=== PATIENT | female | born 1940 | race Caucasian/White ===

== ENCOUNTER 2017-05-15 15:37 | Inpatient (IN) | payer OTHER ==
[~2017-05-15] VITALS: Ht 160 cm; Wt 46.5 kg
[2017-05-15] VITALS (26 sets, daily range): BP systolic 71–146; BP diastolic 32–114
--- NOTE | ~2017-05-15 | CNG ---
[facility] [place] [address] CYTO-NONGYN REPORT PROCEDURE Name: GEMA BARAJAS Room #: 236-P ADM IN M.R.#: [id number] Admission: 05/15/17 Date of : 38 Discharge: Report #: [id number] Path Case #: [id number] CYTOPATHOLOGY REPORT COLLECTION DATE: 05/15/2017 RECEIVED DATE: 05/16/2017 SUBMITTING PHYS: Dr. Darrian Haque OTHER PHYS: Dr. Gilson Leary CLINICAL HISTORY: HCAP, hypoxia, hypernatremia, ABBEY / PNA, predominantly purulent secretions SPECIMEN(S) RECEIVED: A.Bronchoalveolar lavage, Left lung * * * * * * * * * * * * FINAL DIAGNOSIS: A. Lung, Left Lung, Bronchoalveolar lavage: - No malignant cells identified. Rare pulmonary macrophages are present. Partially obscuring inflammatory cells and debris. PATHOLOGIST: Nina Rivas M.D. REPORT ELECTRONICALLY SIGNED BY: Nina Rivas M.D. DATE/TIME: 05/17/2017 14:24 * * * * * * * * * * * * GROSS PATHOLOGY: A. Bronchoalveolar lavage, Left lung: The specimen is submitted unfixed, labeled "JonnathanGema". Received by the Cytology Department is three mL of cloudy colorless fluid. One ThinPrep slide was prepared. (lg 05.16.2017) DENTAL FINANCIAL COORDINATOR(S): DARIUSZ Lr(ASCP) INITIAL CPT CODE(S): A; 13767 Professional services performed by [facility] at [facility] [address], [place] [address] Technical services performed by [facility] at [address] [place] [address], [address], [place] [address]. [facility] [address] [place] [address] CYTO-NONGYN REPORT PROCEDURE Name: GEMA BARAJAS Room #: 236-P ADM IN M.R.#: [id number] Admission: 05/15/17 Date of : 38 Discharge: Report #: [id number] Path Case #: [id number] [address] [facility], [address] [place] [address] PHONE: [phone] DIRECTOR: Roberto Griffith M.D. * * * END OF REPORT * * *
--- NOTE | ~2017-05-15 | EKG ---
[address] [place] [address] ELECTROCARDIOGRAM REPORT Name: JENNNAT Room #: 236-P ADM IN M.R.#: [id number] Admission: 05/15/17 Attend Phys: Gilson De La Cruz DO Discharge: Date of : 38 Report #: [id number] THIS REPORT FOR: //name// [facility] ED Test Date: 2017-05-15 Test Time: 18:19:00 Pat Name: NAT BARAJAS Department: Room: 236 Gender: F Insurance Underwriter Sales: mckayla cash : 1940 Requested By: Graham Bowen Order Number: [id number] MD: Wale Dooley Measurements Intervals [place] Rate: 74 P: 65 [place]: 128 QRS: 32 QRSD: 84 T: 136 QT: 394 QTc: 438 Interpretive Statements Sinus rhythm Nonspecific ST segment abnormality No previous ECG available for comparison Electronically Signed On 05-16-2017 8:39:45 PRE PRESS MANAGER by Wale Dooley [email or web address] <ELECTRONICALLY SIGNED> By: Wale Dooley MD, [facility] 05/16/17 0839 1819 181 Wale Dooley MD, FACC /EPI
--- NOTE | ~2017-05-15 | HC ---
[facility] [place] [address] CONSULTATION Name: NAT BARAJAS Room #: 236-P [facility] IN M.R.#: [id number] Admission: 05/15/17 Attend Phys: Gilson De La Cruz DO Discharge: Date of : 39 Report #: [id number] THIS REPORT FOR: //name// CC: Gilson Hernandez MD DATE OF SERVICE: 05/16/2017 ATTENDING PHYSICIAN: Dr. De La Cruz. REASON FOR CONSULTATION: Pneumonia. Antibiotic management. HISTORY OF PRESENT ILLNESS: The patient is a 77-year-old white woman, admitted through the Emergency Room with respiratory failure requiring orotracheal intubation and mechanical ventilation. A CT scan of the chest revealed left lower lobe atelectasis, infiltrate and recent bronchial tubes requiring bronchoscopy by Dr. Haque. She is started on broad-spectrum antibiotic coverage consisting of meropenem, vancomycin and levofloxacin. Cultures are pending at the time of this dictation. All information on this patient is gathered from the review of her records. She is now in the Intensive Care Unit, intubated through oral cavity, sedated on Levophed. Nursing reports she might be better. PAST MEDICAL HISTORY: Possible dementia. Chronic obstructive pulmonary disease. Restless leg syndrome. Depression. Previous abdominal surgery, undetermined type. DRUG ALLERGIES: PENICILLIN. MEDICATIONS: Current medications include Levaquin 500 mg IV daily, meropenem 1 g IV every 8 hours, vancomycin 500 mg IV every 12 hours, acetylcysteine inhalation treatments t.i.d., famotidine 20 mg IV daily, magnesium and potassium supplementation per protocol, methylprednisolone 40 mg IV b.i.d., sedation with propofol, inhalation treatment with Atrovent/albuterol, insulin drip, p.r.n. glucose glucagon and pressors per protocol, currently on Levophed. SOCIAL HISTORY: Resides at [facility] for unknown period of time. FAMILY HISTORY: Unable to obtain. REVIEW OF SYSTEMS: Unable to obtain. PHYSICAL EXAMINATION: GENERAL: Well-developed sedated woman, unable to participate in the history and [facility] [address] [place] [address] CONSULTATION Name: NAT BARAJAS Room #: 236-P [facility] IN ..#: [id number] Admission: 05/15/17 Attend Phys: Gilson De La Cruz DO Discharge: Date of : 39 Report #: [id number] physical exam. VITAL SIGNS: Temperature 98.2, pulse 52, respirations 19, BP 96/67, O2 saturation 100% on FiO2 of 60%. HEENMT: Head normocephalic, atraumatic. Pupils pinpoint. Mouth unable to examine because of orotracheal intubation. NECK: Supple, no thyromegaly. LUNGS: Crackles left lung base posteriorly. HEART: S1, S2. No gallop or murmur. ABDOMEN: Soft, no masses or megaly. Old surgical scar midline lower abdomen. PELVIC AND RECTAL: Deferred. Liu catheter in place. EXTREMITIES: No clubbing, cyanosis, warm extremities. NEUROLOGIC: Unable to evaluate. LABORATORY DATA: Sodium 155, potassium 3.3, chloride 125, CO2 of 19, BUN 44, creatinine 0.8, glucose 174, magnesium 3, albumin 2 g/dL. Protime 11.6 seconds, INR 1.2. Fibrinogen 656. MRSA screen negative. WBC 10,600, hemoglobin 10.1 g/dL, platelets 456,000. The white blood cell count differential revealed 18% bands yesterday. The procalcitonin 0.69. Urinalysis revealed trace protein. ABGs, pH 7.40, pCO2 of 33, pO2 of 95, bicarbonate 20, lactate 1.9. This set of gases was on FiO2 of 60%, 5 of PEEP. MICROBIOLOGY DATA: Rapid influenza test negative. Blood and sputum cultures pending. The Gram stain of the sputum revealed many wbc's and mixed miriam. RADIOLOGY EVALUATION: CT scan of the chest revealed left lower lobe infiltrate and intrabronchial debris. ASSESSMENT: 1. Healthcare-associated pneumonia. 2. Possible chronic obstructive pulmonary disease. 3. Respiratory failure, mechanical ventilator dependent. 4. Hypoalbuminemia. SUGGESTIONS: While awaiting culture result, must continue coverage with triple antibiotics consisting of levofloxacin, meropenem and vancomycin. If cultures reveal no significant organisms, may start by dropping vancomycin. We will obtain urine for legionella and Streptococcus pneumoniae antigen. Dr. De La Cruz and Dr. Haque, thank you for requesting my suggestions. <ELECTRONICALLY SIGNED> By: Miguel Aldrich MD 05/17/17 0958 0958 1327 Miguel Aldrich MD /nt
--- NOTE | ~2017-05-15 | P ---
[facility] [place] [address] PROCEDURE REPORT Name: JENNNAT Room #: 236-P [facility] IN M.R.#: [id number] Admission: 05/15/17 Attend Phys: Gilson De La Cruz DO Discharge: 05/24/17 Date of : 39 Report #: [id number] THIS REPORT FOR: //name// CC: Gilson Leary DATE OF SERVICE: 05/15/2017 PROCEDURE: Bronchoscopy through an endotracheal tube while the patient on mechanical ventilatory support. INDICATION: Mucus plugging and atelectasis of the left lung, predominantly left lower lobe and refractory hypoxemia and respiratory failure. ASA classification class 3. PROCEDURE NOTATION: After obtaining informed consent from family, who desired to proceed, bronchoscopy equipment was brought to the bedside, 2.2 mm in diameter channel. A disposable scope was utilized during the procedure. The patient was already sedated on mechanical ventilatory support and a 7.[address]. The patient was on propofol GTT for sedation. 2% lidocaine was instilled down the endotracheal tube, a total of 10 mL to provide topical anesthesia to the airways. Bronchoscope was then passed until distal trachea was seen. Endotracheal tube was deep, but in position in the trachea. Airways were surveyed. Mainstem, lobar, segmental and subsegmental bronchi were explored and appeared patent with the exception of the left lower lobe purulent secretions emanating predominantly from there. They were white in nature. This was purged and aspirated using several 20 mL saline aliquots. This was collected and sent for appropriate cultures and cytology. The airways were patent at the end of procedure. Endotracheal tube was repositioned in good position about 4 cm above the chanell. This was secured in place. The patient tolerated well. No noted complications. No hypoxemia during procedure. Followup chest x-ray pending in a.m. as well as arterial blood gas. <ELECTRONICALLY SIGNED> By: Drarian Haque MD 05/31/17 1452 2151 0823 Darrian Haque MD /nt
--- NOTE | ~2017-05-15 | EKG ---
[address] [address] ELECTROCARDIOGRAM REPORT Name: NAT BARAJAS Room #: 236-P ADM IN M.R.#: [id number] Admission: 05/15/17 Attend Phys: Gilson De La Cruz DO Discharge: Date of : 39 Report #: [id number] THIS REPORT FOR: //name// [facility] Test Date: 2017-05-16 Test Time: 11:07:01 Pat Name: NAT BARAJAS Department: Room: 236 P Gender: F Vp Transportation: Sarah NATHAN : 1940 Requested By: Rebekah Casanova Order Number: [id number] MD: Oswaldo Aldrich Measurements Intervals [place] Rate: 53 P: 68 [place]: 127 QRS: 53 QRSD: 99 T: 74 QT: 480 QTc: 451 Interpretive Statements Sinus rhythm Borderline low voltage, extremity leads Abnormal R-wave progression, early transition Compared to ECG 05/15/2017 18:19:00 ST (T wave) deviation no longer present Electronically Signed On 05-16-2017 16:28:10 [email or web address] ELASTIC ATTACHER by Oswaldo Aldrich [email or web address] <ELECTRONICALLY SIGNED> By: Oswaldo Aldrich MD 05/16/17 1628 1107 1107 Oswaldo Aldrich MD /EPI
--- NOTE | ~2017-05-15 | HC ---
[facility] [place] [address] CONSULTATION Name: NAT BARAJAS Toney Room #: 236-P [facility] IN M.R.#: [id number] Admission: 05/15/17 Attend Phys: Gilson De La Cruz DO Discharge: 05/24/17 Date of : 39 Report #: [id number] THIS REPORT FOR: //name// CC: Miguel Haney DO DATE OF SERVICE: 05/15/2017 PULMONARY CRITICAL CARE CONSULTATION REFERRING PROVIDER: Gilson De La Cruz DO. REASON FOR CONSULTATION: Respiratory failure, mucus plugging. CHIEF COMPLAINT: Respiratory distress. HISTORY OF PRESENT ILLNESS: Our group was asked to come and evaluate the patient, a 77-year-old woman with past pulmonary history noted only for vocal cord paralysis on the left by report. The patient is intubated, unable to give any further history. He has been residing at longterm facility, presumably due to dementia. Upon presentation to the Emergency Department, was in respiratory distress and had refractory hypoxemia requiring intubation. A CT scan of the chest revealed significant left lung atelectasis, predominant in the left lower lobe as well as debris in the airways causing occlusion. The patient also was significantly hypotensive requiring over 2 liters of fluid resuscitation and significant hypernatremia, seems to be sensitive to fluids in this regard. The patient is awake upon my arrival, but unable to speak. Because of significant findings and refractory hypoxemia, a bronchoscopy at the bedside was performed and significant purulent secretions were purged and aspirated from the left lower lobe and sent for testing. Airways were patent post-procedure. ALLERGIES: PENICILLIN. PAST MEDICAL HISTORY: 1. Presumed dementia. 2. Depression. 3. Left vocal cord paralysis of unclear etiology. 4. Hypertension. 5. Gastroesophageal reflux disease. SOCIAL HISTORY: Never a smoker, no alcohol consumption. Resides in a longterm. [facility] [address] [place] [address] CONSULTATION Name: JENNNAT Room #: 236-P [facility]#: [id number] Admission: 05/15/17 Attend Phys: Gilson De La Cruz DO Discharge: 05/24/17 Date of : 39 Report #: [id number] OUTPATIENT MEDICATIONS: Include sennosides, Tylenol, Prozac, Ativan, metformin, Depakote, Seroquel, and ReQuip. FAMILY HISTORY: Unobtainable. REVIEW OF SYSTEMS: Unobtainable at this time due to her current status. PHYSICAL EXAMINATION: VITAL SIGNS: Afebrile, pulse 70s, respiratory rate 18, blood pressure 94/39. GENERAL: This is an elderly woman, arousable, no distress. ENT: A 7.[address]. NECK: Supple, no lymphadenopathy. LUNGS: Markedly diminished on the left, but relatively clear otherwise. CARDIOVASCULAR: Heart regular. No murmurs noted. ABDOMEN: Soft, no tenderness. EXTREMITIES: Warm with 2+ pulses. No edema. Three peripheral IV is noted. LABORATORY DATA: White blood cell count 15,000, hemoglobin 12, hematocrit 37, platelet count 591. Sodium 156, potassium 3.1, chloride 123, bicarbonate 22, BUN 59, creatinine 0.9, and glucose 168. TSH 0.327. Arterial blood gas once intubated on assist control, tidal volume 500, rate of 16, PEEP of 5, FiO2 of 80% revealed pH 7.43, pCO2 of 32, pO2 of 85, bicarbonate of 20. CT scan as described in HPI. IMPRESSION: 1. Left lower lobe pneumonia with significant atelectasis from mucus plugging, status post bronchoscopy to clear airway secretions. Suggest sending specimens for appropriate cultures and cytology. I asked Infectious Disease to assist with management of healthcare-associated pneumonia and possible aspiration. 2. Acute hypoxemic respiratory failure due to the above, improved on mechanical ventilatory support. Continue with airway clearance measures and systemic steroids. 3. Probable dementia. 4. History of depression. As above, we will attempt to wean mechanical ventilatory support as patient improves appropriately and if neurologic responds. Would consider initiating sepsis protocol if patient continues to require large amount of volume; however, I think a lot of her problems are volume depletion as evidenced by electrolyte problems. We will continue to follow. [address] [address] CONSULTATION Name: NAT BARAJAS Room #: 236-P DIS IN M.R.#: [id number] Admission: 05/15/17 Attend Phys: Gilson De La Cruz DO Discharge: 05/24/17 Date of : 39 Report #: [id number] Total critical care time 40 minutes, not including any procedures to this point. Discussed with nursing at the bedside as well as respiratory therapy. <ELECTRONICALLY SIGNED> By: Darrian Haque MD 05/31/17 1452 2148 0830 Darrian Haque MD /nt
--- NOTE | ~2017-05-15 | HC ---
[facility] [place] [address] CONSULTATION Name: NAT BARAJAS Room #: 236-P [facility]..#: [id number] Admission: 05/15/17 Attend Phys: Gilson De La Cruz DO Discharge: 05/24/17 Date of : 39 Report #: [id number] THIS REPORT FOR: //name// CC: Gilson Leary DATE OF SERVICE: 05/23/2017 REQUESTING PHYSICIAN: Saji Dalton MD CHIEF COMPLAINT: Hypertension, bradycardia. HISTORY OF PRESENT ILLNESS: The patient is a 77-year-old female originally admitted on 05/15/2017, initially with multiple medical problems including HCAP, acute hypoxic respiratory failure, acute kidney injury, hypernatremia, was subsequently intubated and has up to this point had some recovery and into the instant that she has had extubation and is now on room air. Unfortunately, she has had some difficulties with bradycardia and hypotension and has had significant bradycardia down to the 30s. She is felt to be not a candidate for a pacemaker at this time given her level of dementia and family is agreeing with this assessment. The patient has severe dementia and it is difficult to obtain answers from at times, although her level of attention has somewhat improved overall. The patient is not reporting any type of pain. She denies pain in certain areas, although she will refuse to answer or will not answer certain questions. Does not appear to be in any other acute distress at this time. PAST MEDICAL HISTORY: Significant for dementia, severe based on assessment from family members report; depression; left vocal cord paralysis, unclear origin; hypertension; gastroesophageal reflux disease. ALLERGIES: PENICILLIN. SOCIAL HISTORY: Never smoker. No alcohol consumption in the past. She was at [facility] previously. OUTPATIENT MEDICATIONS: Included senna, Tylenol, Prozac, Ativan, metformin, Depakote, Seroquel, Requip. She is currently on a dopamine as previously stated. FAMILY HISTORY: Noncontributory. REVIEW OF SYSTEMS: Difficult to obtain at this time, although she appears to deny pain or shortness of breath. PHYSICAL EXAMINATION: [address] [address] CONSULTATION Name: NAT BARAJAS Room #: 236-P [facility] IN ..#: [id number] Admission: 05/15/17 Attend Phys: Gilson De La Cruz DO Discharge: 05/24/17 Date of : 38 Report #: [id number] VITAL SIGNS: Temp 36.9, pulse 72, respirations 14, blood pressure 78/34, 100% on room air. GENERAL: She has improved in attention, but is still easily distractible. She was alert for my exam. No acute distress. LUNGS: She was currently clear to auscultation. CARDIOVASCULAR: Regular rate and rhythm currently. No bradycardia at this current point in time. No significant edema. No murmurs. ABDOMEN: Soft and nontender. Diminished bowel sounds noted. LABORATORY DATA: Most recent labs from the included white blood cell count 12.8, hemoglobin 10.1, platelets 429. Creatinine 0.6, sodium 145, potassium 3.7. ASSESSMENT AND PLAN: 1. Bradycardia. Appreciate consultation from Cardiology at this time. Resultant hypotension at this point. She has had discussions with Dr. Dalton, Dr. Coa with regards to plan of care going forwards with the niece by the name of Lizzie Mcelroy, and they have decided on a DNR/DNI at this time and were in the plans to pursue some hospice care. I discussed again hospice with the durable power of criminal attorney and additionally, we discussed weaning off the dopamine and the potential results of this. She was amenable to weaning this medication off with the potential for hypotension and bradycardia that might result in and was amenable to comfort medications if necessary if she were to overnight. Did discuss pursuing hospice dedicated facility in the morning if the patient was stable enough for this or another hospice situation. I did discuss that I can be reached at any point with regards to these discussions. I spent approximately 25 minutes with discussion in regards to advanced care planning. I did discuss this with nursing staff and also with case mgr as well. 2. Dementia, appears to be severe at this time. Again, there is a high possibility the patient would acquire pneumonia in the future resulting in or resulting resultant from above bradycardia most likely. I do agree hospice is an appropriate intervention at this time. 3. Acute hypoxic respiratory failure, appears to have resolved at this current point. Again, I have discussed this with family. I will continue to follow along with this patient's care until discharge. Please call me for any questions regarding this patient. Thank you very much for the consult. <ELECTRONICALLY SIGNED> By: Nicholas Rojas DO 06/14/17 1323 1732 0543 Nicholas Rojas DO /nt
--- NOTE | ~2017-05-15 | EKG ---
[place] [address] [facility] [place] [address] ELECTROCARDIOGRAM REPORT Name: JENNNAT Room #: 236-P ADM IN M.R.#: [id number] Admission: 05/15/17 Attend Phys: Gilson De La Cruz DO Discharge: Date of : 39 Report #: [id number] THIS REPORT FOR: //name// [facility] ED Test Date: 2017-05-15 Test Time: 16:05:24 Pat Name: NAT BARAJAS Department: Room: 236 Gender: F Vp Of Marketing: Teofilo VU : 1940 Requested By: Richard Flanagan Order Number: [id number] MD: Wale Dooley Measurements Intervals [place] Rate: 152 P: [place]: 109 QRS: 36 QRSD: 113 T: 35 QT: 432 QTc: 687 Interpretive Statements Marked Baseline artifact limits interpretation Supraventricular rhythm Nonspecific ST and T wave abnormality No previous ECG available for comparison Electronically Signed On 05-16-2017 8:38:30 BASKETBALL COMMENTATOR by Wale Dooley [email or web address] <ELECTRONICALLY SIGNED> By: Wale Dooley MD, [facility] 05/16/17 0838 1605 160 Wale Dooley MD, FAC /EPI
--- NOTE | ~2017-05-15 | 2DMMODE ---
[facility] [address] [place] [address] 2 D/M-MODE ECHOCARDIOGRAM Name: NAT BARAJAS Room #: 236-P [facility] ..#: [id number] Admission: 05/15/17 Attend Phys: Gilson De La Cruz, Discharge: Date of : 38 Date of Service: 05/16/17 1253 Report #: [id number] THIS REPORT FOR: //name// APPROVED REPORT Study performed: 05/16/2017 11:55:37 EXAM: Comprehensive 2D, Doppler, and color-flow Echocardiogram Patient Location: ICU Room #: [facility], 1928–1983 Status: routine BSA: 1.56 HR: 48 bpm BP: 114/53 mmHg Other Information Study Quality: Good Indications Bradycardia 2D Dimensions RVDd: 37.89 mm LVEF(%): 54.84 (>50%) IVSd: 7.84 (7-11mm) LVOT Diam: 17.65 (18-24mm) LVDd: 40.13 mm PWd: 8.46 (7-11mm) Ascending Ao: 29.64 (22-36mm) LVDs: 28.87 (25-40mm) Aortic Root: 30.56 mm IVC: 26.00 mm Michel's LVEF: 54.84 % Volumes Left Atrial Volume (Systole) Single Plane 4CH: 34.67 mL Single Plane 2CH: 52.69 mL LA ESV Index: 34.00 mL/m2 Aortic Valve AoV Peak Sam.: 1.23 m/s AO Peak Gr.: 6.05 mmHg LVOT Max P.17 mmHg LVOT Max V: 1.14 m/s ITALO Vmax: 2.26 cm2 Mitral Valve E/A Ratio: 1.2 MV Decel. Time: 249.87 ms MV E Max Sam.: 1.09 m/s [facility] [place] [address] 2 D/M-MODE ECHOCARDIOGRAM Name: NAT BARAJAS Room #: 236-P [facility] .R.#: [id number] Admission: 05/15/17 Attend Phys: Gilson De La Cruz, Discharge: Date of : 38 Date of Service: 05/16/17 1253 Report #: [id number] MV A Sam.: 0.91 m/s MV PHT: 72.46 ms IVRT: 87.66 ms Pulmonary Valve PV Peak Sam.: 0.76 m/s PV Peak Gr.: 2.28 mmHg Pulmonary Vein P Vein S: 0.69 m/s P Vein A: 0.29 m/s P Vein D: 0.33 m/s P Vein A Dur.: 143.0 msec P Vein S/D Ratio: 2.09 Tricuspid Valve TR Peak Sam.: 2.50 m/s TR Peak Gr.: 25.03 mmHg PA Pressure: 40.00 mmHg Left Ventricle The left ventricle is normal size. There is normal LV segmental wall motion. There is normal left ventricular wall thickness. The left ventricular systolic function is normal. The left ventricular ejection fraction is within the normal range. LVEF is 55-60%. The left ventricular diastolic function is normal. Right Ventricle The right ventricle is normal size. The right ventricular systolic function is normal. Atria Left atrium is mildly dilated. The right atrium size is normal. Aortic Valve The aortic valve is mildly sclerotic Trace aortic regurgitation. There is no aortic valvular stenosis. Mitral Valve Mild mitral annular calcification Mild mitral regurgitation. No evidence of mitral valve stenosis. Tricuspid Valve The tricuspid valve is normal in structure. There is trace tricuspid regurgitation. Estimated PAP 40 mmHg. There is mild pulmonary hypertension. Pulmonic Valve [address] [address] 2 D/M-MODE ECHOCARDIOGRAM Name: NAT BARAJAS Room #: 236-P [facility]#: [id number] Admission: 05/15/17 Attend Phys: Gilson De La Cruz, Discharge: Date of : 38 Date of Service: 05/16/17 1253 Report #: [id number] The pulmonary valve is normal in structure. Trace pulmonic regurgitation. Great Vessels The aortic root is normal in size. The inferior vena cava is dilated with no inspiratory collapse. Pericardium There is no pericardial effusion. <Conclusion> The left ventricular systolic function is normal. There is normal LV segmental wall motion. LVEF 55-60%. Left atrium is mildly dilated. The aortic valve is mildly sclerotic. Trace aortic regurgitation, no stenosis. Mild mitral annular calcification. Mild mitral regurgitation. There is trace tricuspid regurgitation. Estimated pulmonary artery pressure of 40 mmHg. There is no pericardial effusion. <ELECTRONICALLY SIGNED> By: Wale Dooley MD, FACC 05/16/17 1253 1253 1253 Wale Dooley MD, FACC /INF
[2017-05-15 15:59] LABS: BE(vivo) -4.1 mmol/L (-2 to +3); PCO2 25.2 mmHg (35.0-45.0); PO2 47.1 mmHg (80.0-100.0); pH 7.472 (7.360-7.450); sO2 86.6 % (92.0-98.0)
[2017-05-15 15:59] LABS: HEMATOCRIT 36.9 % (37.0-47.0); MCH 29.4 pg (26.0-34.0); MCHC 32.5 g/dL (28.0-37.0); MCV 90.5 fL (80.0-100.0); PLATELET COUNT 591 thou/uL (150-400); RBC 4.07 mil/uL (4.20-5.00); RDW 15.2 % (10.5-14.5); WBC 14.8 thou/uL (4.0-11.0)
[2017-05-15 16:10] LABS: ANION GAP 13 mmol/L (7-16); BUN 60 mg/dL (7-18); CALCIUM 10.4 mg/dL (8.5-10.1); CHLORIDE 120 mmol/L (98-107); CO2 25 mmol/L (21-32); CREATININE 1.2 mg/dL (0.6-1.0); GLUCOSE 147 mg/dL (74-106); POTASSIUM 3.3 mmol/L (3.5-5.1); SODIUM 158 mmol/L (136-145)
[2017-05-15 16:18] LABS: TROPONIN-I < 0.04 ng/mL (<0.06)
[2017-05-15 16:20] LABS: ABSOLUTE NEUTROPHILS 10.2 thou/uL (1.4-8.2)
[2017-05-15 16:21] LABS: ANISOCYTOSIS 2+; MICROCYTES FEW; POLYCHROMASIA SLIGHT; SCHISTOCYTES FEW
[2017-05-15 17:15] LABS: BE(vivo) -3.6 mmol/L (-2 to +3); HCO3 19.9 mmol/L (22.0-26.0); PCO2 30.9 mmHg (35.0-45.0); pH 7.426 (7.360-7.450); sO2 96.8 % (92.0-98.0)
[2017-05-15] MEDS ORDERED: SENEXON8.6 MG PO (17:22)
[2017-05-15] MEDS ORDERED: TYLENOL325 MG PO (17:22)
[2017-05-15] MEDS ORDERED: ATIVAN0.5 MG PO (17:23)
[2017-05-15] MEDS ORDERED: PROZAC10 MG PO (17:23)
[2017-05-15] MEDS ORDERED: VITAMIN D250000 UNIT PO (17:24)
[2017-05-15] MEDS ORDERED: VITAMIN B-12500 MCG PO (17:24)
[2017-05-15] MEDS ORDERED: METFORMIN HCL500 MG PO (17:24)
[2017-05-15] MEDS ORDERED: SEROQUEL 50 MG50 MG PO (17:25)
[2017-05-15] MEDS ORDERED: REQUIP0.5 MG PO (17:25)
[2017-05-15] MEDS ORDERED: DEPAKOTE 250MG250 M1 PO (17:25)
[2017-05-15 19:49] LABS: CALCIUM 8.9 mg/dL (8.5-10.1); CREATININE 0.9 mg/dL (0.6-1.0); POTASSIUM 3.1 mmol/L (3.5-5.1)
[2017-05-15 20:09] LABS: URINE BILIRUBIN NEGATIVE (Negative); URINE BLOOD NEGATIVE (Negative); URINE CLARITY CLEAR; URINE COLOR YELLOW; URINE GLUCOSE-RANDOM* NEGATIVE (Negative); URINE KETONES NEGATIVE (Negative); URINE LEUKOCYTES-REFLEX NEGATIVE (Negative); URINE NITRITE-REFLEX NEGATIVE (Negative); URINE PROTEIN (DIPSTICK) TRACE (Negative); URINE SPECIFIC GRAVITY 1.025 (1.005-1.035)
[2017-05-15 22:24] LABS: CALCIUM 9.1 mg/dL (8.5-10.1); POTASSIUM 3.3 mmol/L (3.5-5.1)
[2017-05-15 22:29] LABS: TOTAL BILIRUBIN 0.4 mg/dL (<0.1-1.0); TOTAL PROTEIN 6.2 g/dL (6.4-8.2)
[2017-05-15 23:02] LABS: APTT 26.5 Seconds (24.5-32.8); INR 1.2; PROTIME 11.6 Seconds (9.3-11.4)
[2017-05-15 23:10] LABS: CREATININE 0.9 mg/dL (0.6-1.0); POTASSIUM 3.8 mmol/L (3.5-5.1)
[2017-05-16] VITALS (98 sets, daily range): BP systolic 78–152; BP diastolic 38–121
[2017-05-16 02:58] LABS: HEMATOCRIT 30.8 % (37.0-47.0); HEMOGLOBIN 10.1 gm/dL (12.0-15.0); MCHC 32.7 g/dL (28.0-37.0); MCV 91.9 fL (80.0-100.0); RBC 3.36 mil/uL (4.20-5.00); RDW 15.4 % (10.5-14.5); WBC 10.6 thou/uL (4.0-11.0)
[2017-05-16 03:03] LABS: CALCIUM 7.8 mg/dL (8.5-10.1); CREATININE 0.8 mg/dL (0.6-1.0); POTASSIUM 3.5 mmol/L (3.5-5.1)
[2017-05-16 05:18] LABS: BE(vivo) -3.8 mmol/L (-2 to +3); HCO3 20.2 mmol/L (22.0-26.0); pH 7.405 (7.360-7.450); sO2 97.4 % (92.0-98.0)
[2017-05-16 06:50] LABS: CALCIUM 8.2 mg/dL (8.5-10.1); CREATININE 0.8 mg/dL (0.6-1.0); POTASSIUM 3.3 mmol/L (3.5-5.1)
[2017-05-16 14:49] LABS: POTASSIUM 3.2 mmol/L (3.5-5.1)
[2017-05-16 15:24] LABS: MAGNESIUM 2.2 mg/dL (1.8-2.4)
[2017-05-17] VITALS (95 sets, daily range): BP systolic 80–152; BP diastolic 33–111
[2017-05-17 03:58] LABS: CALCIUM 8.4 mg/dL (8.5-10.1); CREATININE 0.6 mg/dL (0.6-1.0)
[2017-05-17 04:10] LABS: HEMATOCRIT 28.9 % (37.0-47.0); HEMOGLOBIN 9.5 gm/dL (12.0-15.0); MCH 29.8 pg (26.0-34.0); MCHC 32.9 g/dL (28.0-37.0); MCV 90.6 fL (80.0-100.0); PLATELET COUNT 408 thou/uL (150-400); RBC 3.19 mil/uL (4.20-5.00); RDW 15.5 % (10.5-14.5); WBC 12.9 thou/uL (4.0-11.0)
[2017-05-17 04:47] LABS: ABSOLUTE NEUTROPHILS 10.8 thou/uL (1.4-8.2); MYELOCYTES 2 %; PROMYELOCYTES 1 %
[2017-05-17 05:17] LABS: BE(vivo) -4.9 mmol/L (-2 to +3); HCO3 18.6 mmol/L (22.0-26.0); PCO2 29.3 mmHg (35.0-45.0); PO2 79.1 mmHg (80.0-100.0); sO2 96.1 % (92.0-98.0)
[2017-05-17 09:58] LABS: BE(vivo) -1.9 mmol/L (-2 to +3); HCO3 21.1 mmol/L (22.0-26.0); PCO2 29.9 mmHg (35.0-45.0); PO2 75.5 mmHg (80.0-100.0); pH 7.467 (7.360-7.450); sO2 96.1 % (92.0-98.0)
[2017-05-18] VITALS (79 sets, daily range): BP systolic 77–162; BP diastolic 38–95
[2017-05-18 05:40] LABS: HEMATOCRIT 29.6 % (37.0-47.0); HEMOGLOBIN 9.7 gm/dL (12.0-15.0); MCH 29.3 pg (26.0-34.0); MCHC 32.7 g/dL (28.0-37.0); MCV 89.6 fL (80.0-100.0); PLATELET COUNT 458 thou/uL (150-400); RDW 15.1 % (10.5-14.5); WBC 11.8 thou/uL (4.0-11.0)
[2017-05-18 05:47] LABS: CALCIUM 8.4 mg/dL (8.5-10.1); CREATININE 0.6 mg/dL (0.6-1.0); POTASSIUM 3.8 mmol/L (3.5-5.1)
[2017-05-18 08:18] LABS: ABSOLUTE NEUTROPHILS 10.3 thou/uL (1.4-8.2); ANISOCYTOSIS 1+; POLYCHROMASIA OCCASIONAL
[2017-05-19] VITALS (50 sets, daily range): BP systolic 88–143; BP diastolic 36–100
[2017-05-19 05:04] LABS: HEMATOCRIT 32.6 % (37.0-47.0); HEMOGLOBIN 10.6 gm/dL (12.0-15.0); MCH 28.9 pg (26.0-34.0); MCHC 32.3 g/dL (28.0-37.0); MCV 89.2 fL (80.0-100.0); PLATELET COUNT 496 thou/uL (150-400); RBC 3.66 mil/uL (4.20-5.00); RDW 15.1 % (10.5-14.5); WBC 13.8 thou/uL (4.0-11.0)
[2017-05-19 05:13] LABS: CALCIUM 8.8 mg/dL (8.5-10.1); CREATININE 0.6 mg/dL (0.6-1.0); POTASSIUM 3.9 mmol/L (3.5-5.1)
[2017-05-19 05:19] LABS: BE(vivo) 0.2 mmol/L (-2 to +3); HCO3 23.7 mmol/L (22.0-26.0); PCO2 34.1 mmHg (35.0-45.0); PO2 92.9 mmHg (80.0-100.0); pH 7.459 (7.360-7.450); sO2 97.5 % (92.0-98.0)
[2017-05-19 05:55] LABS: ABSOLUTE NEUTROPHILS 10.6 thou/uL (1.4-8.2); ANISOCYTOSIS SLIGHT; METAMYELOCYTES 1 %; MYELOCYTES 2 %
[2017-05-20] VITALS (49 sets, daily range): BP systolic 83–153; BP diastolic 35–87
[2017-05-20 05:55] LABS: HEMATOCRIT 31.5 % (37.0-47.0); HEMOGLOBIN 10.5 gm/dL (12.0-15.0); MCH 29.6 pg (26.0-34.0); MCHC 33.2 g/dL (28.0-37.0); MCV 89.3 fL (80.0-100.0); PLATELET COUNT 479 thou/uL (150-400); RBC 3.53 mil/uL (4.20-5.00); RDW 15.2 % (10.5-14.5); WBC 13.8 thou/uL (4.0-11.0)
[2017-05-20 06:05] LABS: CALCIUM 8.6 mg/dL (8.5-10.1); CREATININE 0.5 mg/dL (0.6-1.0); POTASSIUM 3.8 mmol/L (3.5-5.1)
[2017-05-20 07:14] LABS: METAMYELOCYTES 1 %
[2017-05-20 07:15] LABS: MYELOCYTES 1 %
[2017-05-20 12:53] LABS: BE(vivo) 2.7 mmol/L (-2 to +3); PO2 91.7 mmHg (80.0-100.0); pH 7.525 (7.360-7.450); sO2 97.8 % (92.0-98.0)
[2017-05-21] VITALS (52 sets, daily range): BP systolic 69–138; BP diastolic 27–87
[2017-05-21 04:54] LABS: HEMATOCRIT 30.4 % (37.0-47.0); HEMOGLOBIN 10.1 gm/dL (12.0-15.0); MCH 29.2 pg (26.0-34.0); MCHC 33.1 g/dL (28.0-37.0); MCV 88.3 fL (80.0-100.0); PLATELET COUNT 429 thou/uL (150-400); RBC 3.45 mil/uL (4.20-5.00); RDW 14.7 % (10.5-14.5); WBC 12.8 thou/uL (4.0-11.0)
[2017-05-21 05:01] LABS: CALCIUM 8.2 mg/dL (8.5-10.1); CREATININE 0.6 mg/dL (0.6-1.0); POTASSIUM 3.7 mmol/L (3.5-5.1)
[2017-05-21 08:19] LABS: ABSOLUTE NEUTROPHILS 8.4 thou/uL (1.4-8.2); ANISOCYTOSIS 1+; METAMYELOCYTES 4 %; POLYCHROMASIA OCCASIONAL
[2017-05-22] VITALS (50 sets, daily range): BP systolic 85–162; BP diastolic 36–90
[2017-05-23] VITALS (55 sets, daily range): BP systolic 59–138; BP diastolic 29–71
[2017-05-24] VITALS (15 sets, daily range): BP systolic 84–100; BP diastolic 36–50
[2017-05-24] MEDS ORDERED: MIDODRINE HCL 55 M1 PO (08:19)
[2017-05-24] MEDS ORDERED: DEPAKOTE 250MG250 M1 PO (08:20)
[2017-05-24] MEDS ORDERED: SEROQUEL 50 MG50 MG PO (08:20)
[2017-05-24] MEDS ORDERED: REQUIP0.5 MG PO (08:21)
[2017-05-24] MEDS ORDERED: ATIVAN0.5 MG PO (08:21)
[2017-05-24] MEDS ORDERED: SENEXON8.6 MG PO (08:21)
[2017-05-24] MEDS ORDERED: METFORMIN HCL500 MG PO (08:22)
== END 2017-05-24 19:45 | disposition hospice, inpatient (51) | DRG 853 ==
LOC: ER 15:37 → ICU 17:36 → EROBS 17:36 → ICU 18:13
PROVIDERS: Emergency Medicine; Family Medicine; Internal Medicine Pulmonary Disease; Nurse Practitioner Family
PROC: 0BH17EZ Insertion of Endotracheal Airway into Trachea, Via Natural or Artificial Opening (ICD-10-PCS; principal; 2017-05-15)
PROC: 5A1955Z Respiratory Ventilation, Greater than 96 Consecutive Hours (ICD-10-PCS; principal; 2017-05-15)
PROC: 0B9J8ZX Drainage of Left Lower Lung Lobe, Via Natural or Artificial Opening Endoscopic, Diagnostic (ICD-10-PCS; principal; 2017-05-15)
PROC: 02HV33Z Insertion of Infusion Device into Superior Vena Cava, Percutaneous Approach (ICD-10-PCS; 2017-05-16)
DX: A41.9 Sepsis, unspecified organism (principal); J96.01 Acute respiratory failure with hypoxia; J18.1 Lobar pneumonia, unspecified organism; G92 Toxic encephalopathy; E87.0 Hyperosmolality and hypernatremia; N17.9 Acute kidney failure, unspecified; T17.590A Other foreign object in bronchus causing asphyxiation, initial encounter; J98.11 Atelectasis; I12.9 Hypertensive chronic kidney disease with stage 1 through stage 4 chronic kidney disease, or unspecified chronic kidney disease; K21.9 Gastro-esophageal reflux disease without esophagitis; F32.9 Major depressive disorder, single episode, unspecified; X58.XXXA Exposure to other specified factors, initial encounter; Y93.89 Activity, other specified; Y92.89 Other specified places as the place of occurrence of the external cause; Y99.8 Other external cause status; F03.90 Unspecified dementia, unspecified severity, without behavioral disturbance, psychotic disturbance, mood disturbance, and anxiety; J44.9 Chronic obstructive pulmonary disease, unspecified; G25.81 Restless legs syndrome; E88.09 Other disorders of plasma-protein metabolism, not elsewhere classified; R00.1 Bradycardia, unspecified; Z66 Do not resuscitate; D64.9 Anemia, unspecified; R65.20 Severe sepsis without septic shock; Z51.5 Encounter for palliative care; I87.2 Venous insufficiency (chronic) (peripheral); N18.9 Chronic kidney disease, unspecified; D63.8 Anemia in other chronic diseases classified elsewhere; Z88.0 Allergy status to penicillin; Z79.899 Other long term (current) drug therapy
CPT/HCPCS: 10078; 27000

== ENCOUNTER 2018-06-08 15:24 | Inpatient (IN) | payer OTHER ==
[~2018-06-08] VITALS: Ht 157.5 cm; Wt 55.5 kg
[~2018-06-08 15:24] MED LIST: ATIVAN0.5 MG PO; DEPAKOTE 250MG250 M1 PO; METFORMIN HCL500 MG PO; MIDODRINE HCL 55 M1 PO; PROZAC10 MG PO; REQUIP0.5 MG PO; SENEXON8.6 MG PO; SEROQUEL 50 MG50 MG PO; TYLENOL325 MG PO; VITAMIN B-12500 MCG PO; VITAMIN D250000 UNIT PO
[2018-06-08 15:25] VITALS: BP 142/85
--- NOTE | 2018-06-08 15:50 | NUR ---
TAMARA ADAMES RN, AT BEDSIDE NOW
[2018-06-08 15:51] LABS: BE(vivo) -3.1 mmol/L (-2 to +3); HCO3 19.3 mmol/L (22.0-26.0); PCO2 27.8 mmHg (35.0-45.0); PO2 75.4 mmHg (80.0-100.0)
[2018-06-08 16:21] LABS: HEMATOCRIT 37.4 % (37.0-47.0); HEMOGLOBIN 12.3 gm/dL (12.0-15.0); MCH 30.3 pg (26.0-34.0); MCHC 33.1 g/dL (28.0-37.0); MCV 91.7 fL (80.0-100.0); PLATELET COUNT 809 thou/uL (150-400); RBC 4.07 mil/uL (4.20-5.00); RDW 14.7 % (10.5-14.5); WBC 21.3 thou/uL (4.0-11.0)
[2018-06-08 16:32] LABS: CALCIUM 9.8 mg/dL (8.5-10.1); CREATININE 1.2 mg/dL (0.6-1.0); POTASSIUM 3.5 mmol/L (3.5-5.1)
[2018-06-08 16:44] LABS: ABSOLUTE NEUTROPHILS 17.3 thou/uL (1.4-8.2); METAMYELOCYTES 1 %; NUCLEATED RBCS 1 /100WBC; TOXIC GRANULATION 2+
[2018-06-08 16:45] LABS: ANISOCYTOSIS 2+; POLYCHROMASIA OCCASIONAL
[2018-06-08 16:50] LABS: POIKILOCYTOSIS SLIGHT
[2018-06-08 17:24] VITALS: BP 128/75
[2018-06-08 17:25] LABS: URINE BLOOD 3+ (Negative); URINE CLARITY SL CLOUDY; URINE COLOR YELLOW; URINE GLUCOSE-RANDOM* NEGATIVE (Negative); URINE KETONES 1+ (Negative); URINE NITRITE-REFLEX NEGATIVE (Negative); URINE PROTEIN (DIPSTICK) 2+ (Negative)
[2018-06-08 17:26] LABS: URINE LEUKOCYTES-REFLEX 2+ (Negative)
[2018-06-08 17:27] LABS: ICTOTEST (BILI CONFIRMATORY) Negative (Negative); URINE BILIRUBIN NEGATIVE (Negative)
[2018-06-08 17:28] VITALS: BP 128/70
[2018-06-08 17:38] LABS: BACTERIA-REFLEX >30 Many /HPF (None Seen); URINE RBC >20 Many /HPF (0-2)
[2018-06-08 17:39] LABS: CASTS None Seen /LPF (None Seen); MUCUS >6 Heavy strn/LPF (None Seen); SQUAMOUS 4-10 Moderate /LPF (0-3)
[2018-06-08 17:54] VITALS: BP 117/60
[2018-06-08] MEDS ORDERED: SEROQUEL 50 MG50 MG PO ×2 (18:32→18:44)
[2018-06-08] MEDS ORDERED: ATIVAN1 MG PO (18:44)
[2018-06-08] MEDS ORDERED: B12INJ IM ×2 (18:44→19:21)
[2018-06-08] MEDS ORDERED: MIRALAX17 GM PO (18:44)
[2018-06-08] MEDS ORDERED: BISCOLAX10 MG RECTAL (18:45)
[2018-06-08] MEDS ORDERED: SCOPOLAMINE1 EACH TRANSDERM (18:46)
[2018-06-08] MEDS ORDERED: OSELB75 PO (18:47)
--- NOTE | 2018-06-08 19:04 | NUR ---
PT ADMITED FROM ER. HX OF DEMENTIA. UNABLE TO COMPLETED THOROUGH ADMISSION HX DUE TO PT COGNITIVE STATUS AND NO FAMILY PRESENT. FALL PRECAUTION IN PLACE. MADE COMFORTABLE IN BED. WILL CONTINUE TO MONITOR.
[2018-06-08 19:19] VITALS: BP 114/60
[2018-06-09 00:28] VITALS: BP 110/89
[2018-06-09 03:26] LABS: HEMATOCRIT 35.9 % (37.0-47.0); HEMOGLOBIN 11.6 gm/dL (12.0-15.0); MCH 29.8 pg (26.0-34.0); MCHC 32.4 g/dL (28.0-37.0); MCV 91.9 fL (80.0-100.0); RBC 3.91 mil/uL (4.20-5.00); RDW 15.2 % (10.5-14.5); WBC 24.3 thou/uL (4.0-11.0)
[2018-06-09 03:30] LABS: CALCIUM 8.6 mg/dL (8.5-10.1); CREATININE 1.1 mg/dL (0.6-1.0); MAGNESIUM 2.8 mg/dL (1.8-2.4)
[2018-06-09 03:32] LABS: POTASSIUM 2.9 mmol/L (3.5-5.1)
[2018-06-09 05:00] VITALS: BP 99/68
--- NOTE | 2018-06-09 05:20 | NUR ---
ASSUMED PT CARE AT 1900 AND BEDSIDE REPORT TAKEN. PT IS VERY LETHARGIC AND IS ON HIGH FLOW OXYGEN. NO FAMILY MEMBER AT BEDSIDE. PT IS NOT TALKING, NO SIGN OF DISTRESS NOTED. VITAL SIGNS STABLE. NO SCHEDULED MEDS AVAILABLE PATIENT IS STABLE. SPOKE TO PATIENT'S NIECE WHO IS PATIENT'S DPOA. PT IS STABLE. NO FURTHER NEEDS AY THIS TIME.
[2018-06-09 07:08] VITALS: BP 123/90
--- NOTE | 2018-06-09 08:59 | EKG ---
[address] [place] [address] ELECTROCARDIOGRAM REPORT Name: NAT BARAJAS Room #: 201-P ADM IN M.R.#: [id number] ������������������ Admission: 06/08/18 ������������������ Attend Phys: Sis Bacon MD Discharge: ������������������ Date of : 38 Report #: [id number] ����������������������������������������������������������������� [id number] THIS REPORT FOR: //name// [facility] ED Test Date: 2018-06-08 Test Time: 15:35:25 Pat Name: NAT BARAJAS Department: Room: 201 P Gender: F Last Repairer Helper: DAMIR : 1940 Requested By: Richard Flanagan Order Number: [id number] MD: Wale Dooley Measurements Intervals [place] Rate: 115 P: 73 MN: 119 QRS: 16 QRSD: 76 T: -48 QT: 299 QTc: 414 Interpretive Statements Sinus tachycardia ST and T wave abnormality, consider ischemia Baseline wander in lead(s) V3 Compared to ECG 05/16/2017 11:07:01 ST and T wave abnormality is more pronounced Electronically Signed On 06-09-2018 8:59:41 CDT by Wale Dooley [email or web address] ��������������������������������������������� <ELECTRONICALLY SIGNED> ���������������������������������������� By: Wale Dooley MD, [facility] ��������������������������������������������� 06/09/18 0859 1535 1535 Wale Dooley MD, [facility] /EPI
[2018-06-09 10:33] VITALS: BP 113/53
--- NOTE | 2018-06-09 12:07 | NUR ---
PT. CURRENTLY RESIDES AT [facility]. FAXED CLINICAL UPDATE TO FACILITY SPOKE WITH PATRICIA IN ADM. AND SHE RECEIVED UPDATE. ALSO INQUIRED IF PT. HAD HOSPICE AT FACILITY AND SHE DID NOT. DCP TO FOLLOW.
--- NOTE | 2018-06-09 12:11 | NUR ---
Patient admits from [facility] dementia unit to [facility] with hypernatremia. Patient resides in LTC. DC information systems planner to update. Sp with nierick Valdes who reports plan return to facility once stable. noted in May 24, 2017 patiet transferred to [facility] from [facility]. Patient is not on hospice at [facility]. casemgt following
[2018-06-09 12:29] LABS: CALCIUM 8.7 mg/dL (8.5-10.1); POTASSIUM 3.4 mmol/L (3.5-5.1)
[2018-06-09 15:33] VITALS: BP 110/61
--- NOTE | 2018-06-09 15:56 | NUR ---
ASSUMED PATIENT CARE THIS AM. PATIENT LYING IN BED, LETHARGIC, WILL AROUSE AT TIMES. PATIENT WILL SHOUT LEAVE ME ALONE. IV FLUIDS INFUSING PER ORDER. PATIENT INCONTINENT, FREQUENT MONITORING, Q2H TURNS. FALL RISK. BED ALARM IN PLACE. NOISE MINIMIZED AND LIGHTS DIM TO REDUCE AGGITATION. DPOA NOTIFIED OF PLAN OF CARE THIS AM. CONTINUOUS PULSE OX IN PLACE. PATIENT ON HIGH FLOW MACHINE.
[2018-06-09 20:51] VITALS: BP 131/60
[2018-06-10 05:07] VITALS: BP 143/93
--- NOTE | 2018-06-10 05:30 | NUR ---
[facility] WITH REPORT TAKEN, NO CHANGES FROM BASELINE. PT IS LAYING IN BED ON HIGH FLOW OXYGEN. NO SIGN OF DISTRESS NOTED. SCHEDULED MEDS ADMINISTERED TO PT, PT IS STABLE. NO FURTHER NEEDS AT THIS TIME.
[2018-06-10 07:51] VITALS: BP 135/74
[2018-06-10 08:14] LABS: CALCIUM 8.6 mg/dL (8.5-10.1); CREATININE 0.8 mg/dL (0.6-1.0); MAGNESIUM 2.6 mg/dL (1.8-2.4); POTASSIUM 3.6 mmol/L (3.5-5.1)
[2018-06-10 08:20] LABS: HEMATOCRIT 29.7 % (37.0-47.0); MCH 29.7 pg (26.0-34.0); MCHC 32.3 g/dL (28.0-37.0); MCV 92.1 fL (80.0-100.0); RBC 3.23 mil/uL (4.20-5.00); RDW 15.3 % (10.5-14.5); WBC 25.3 thou/uL (4.0-11.0)
[2018-06-10 08:22] LABS: HEMOGLOBIN 9.6 gm/dL (12.0-15.0); PLATELET COUNT 550 thou/uL (150-400)
[2018-06-10 08:40] LABS: PLATELET ESTIMATE INCREASED
[2018-06-10 11:06] VITALS: BP 126/75
[2018-06-10 15:05] VITALS: BP 127/50
--- NOTE | 2018-06-10 15:50 | NUR ---
ASSUMED PATIENT CARE THIS AM. PATIENT LYING IN BED, AWAKE AND SOMEWHAT COOPERATIVE AT TIMES. PATIENT INCONTINENT, FREQUENT MONITORING AND REPOSITIONING. PATIENT CAN BE COMBATIVE AT TIMES. PATIENT TAKEN OFF HIGH FLOW OXYGEN AND PLACED ON 3L NC, TOLERATING MUCH BETTER, OXYGENATION MAINTAINED >90%. FALL RISK. BED ALARM IN PLACE. CALL LIGHT WITHIN REACH. PATIENT MUCH MORE CONTENT AND COOPERATIVE WITH ROOM LIGHTS ON. IV FLUIDS INFUSING PER ORDER. SPOKE WITH ELAINE COPELAND, THIS AM, UPDATED ON PLAN OF CARE, NO CONCERNS STATED.
--- NOTE | 2018-06-10 17:59 | NUR ---
Received report and assumed patient care at 0700. Reviewed chart, labs, and orders. Patient currently lying in the bed resting with eyes shut and in no apparent distress. Patient is on the ventilator (please check chart for settings). Patient opens eyes to command and responds appropriately to questions. Potassium was replaced and redrawn 1 hour post infusion per protocol and it increased to 3.7. Patient is currently on Cardizem PO with orders to begin Amiodarone PO in the AM. Patient is still in A-fib with rate controlled. Patient was placed on CPAP for 1 1/2 hours then switched back to Ventilator settings. Patient is tolerating her tube feeds. Liu is patent and draining to gravity. Patient has had multiple BMs today that were loose. Patient and family updated on POC. Questions answered and verbalized understanding. Will continue to monitor.
[2018-06-10 19:24] VITALS: BP 117/62
[2018-06-11 04:14] LABS: ALBUMIN 1.9 g/dL (3.4-5.0); CALCIUM 8.2 mg/dL (8.5-10.1); CREATININE 0.7 mg/dL (0.6-1.0); PHOSPHORUS 2.9 mg/dL (2.5-4.9); POTASSIUM 3.9 mmol/L (3.5-5.1)
[2018-06-11 04:21] VITALS: BP 120/49
[2018-06-11 05:11] LABS: GLYCOHEMOGLOBIN (HGB A1C) 5.2 % (4.8-5.6)
--- NOTE | 2018-06-11 05:54 | NUR ---
PATIENTS CARES WERE ASSUMED AT SHIFT CHANGE. PATIENT WAS ASSESSED AND MEDS WERE PASSED. HOURLY ROUNDING WAS DONE. PATIENT DID APPER TO BE SLEEPING AND THIS WAS AN UNEVENTFUL NIGHT. THE PATIENTS BED IS IN A LOW AND LOCKED POSITION AND THE ALARM IS ON.
[2018-06-11 08:01] VITALS: BP 120/56
[2018-06-11 10:00] VITALS: BP 137/56
[2018-06-11 12:12] VITALS: BP 137/56
[2018-06-11 15:58] VITALS: BP 132/58
--- NOTE | 2018-06-11 16:27 | NUR ---
DCP FAXED CLINICAL UPDATE TO [facility] LEFT MSG WITH PATRICIA IN ADM. OF UPDATE FAXED. DCP TO FOLLOW.
[2018-06-11 19:27] VITALS: BP 111/44
--- NOTE | 2018-06-11 19:27 | NUR ---
PATIENT IN BED, TURNED FREQUENTLY. FOR SAFETY PATIENT IS NEAR NURSES STATION, ITEMS IN REACH, FREQUENT OBSERVATION. HEELS WOUNDS OBSERVED, BOOTS ORDERED AND WOUND CARE CONSULTED. PICTURES IN CHART. PATIENT REMAIN BRADYCARDIC, MD AWARE. CONTACT ISOLATION INITIATED FOR MRSA IN NARES
[2018-06-12 03:24] LABS: CREATININE 0.8 mg/dL (0.6-1.0); PHOSPHORUS 2.4 mg/dL (2.5-4.9); POTASSIUM 3.5 mmol/L (3.5-5.1)
[2018-06-12 04:06] VITALS: BP 114/51
--- NOTE | 2018-06-12 05:04 | NUR ---
[facility] 1900. PT A/O TO PERSON. CONFUSION NOTED AND PT NEEDS REDIRECTION. NO PAIN NOTED. MODERATE TOLERANCE TO ACTIVITY. ADEQUATE REST NOTED THROUGH THE NIGHT. PT STAYED RAVINDER WITH SLEEP. REFUSES TO KEEP O2 ON. SATS 90-92% ON ROOM AIR, ASSESSMETN CHARTED. PLAN IS TO CONTINUE TREATMENT WITH ABX AND CONTINUE TO MONITOR LABS AND GENERALIZED IMPROVEMENT. WILL CONTINUE TO MONITOR AND FOLLOW WITH POC
--- NOTE | 2018-06-12 11:02 | NUR ---
WOUND CONSULT: PT. WAS SEEN TODAY FOR SKIN EVALUATION. PT. HAS DEEP TISSUE INJURYS TO BILATERAL HEELS. PT. DIDN'T SHOW ANY SIGNS OF PAIN WITH THESE WOUNDS UPON ASSESEMENT. WOUNDS ARE FREE OF ANY SIGNS OR SYMPTOMS OF INFECTION AT THIS TIME. RECOMMENDATIONS: WOUND CARE TO ALL SITES: GENTLY CLEANSE WITH WOUND CLEANSER OR NORMAL SALINE, PAINT WITH BETADINE, LEAVE OPEN TO AIR, COMPLETE CARES DAILY. KEEP PT. IN HEEL PROTECTORS AT ALL TIMES WHILE IN BED FOR OFFLOADING. PT. AND STAFF NURSE WERE INSTRUCTED ON PLAN OF CARE.
--- NOTE | 2018-06-12 13:28 | NUR ---
Message left for pt's niece/dpdavid silver regarding possible dc back to the [facility] tomorrow. Pt had swallow study today with ST recommending puree diet and honey thickened liquids with supervision at all times. DC planner internship to fax to the ST notes to facility. Message left for admissions liason regarding above as well as that the pt is in contact isolation for +mrsa in the nares. She is on iv atb. Will follow to coordinate her return when medically cleared.
--- NOTE | 2018-06-12 14:00 | NUR ---
DCP FAXED SPEECH THERAPY NOTES PERTAINING PT'S FOOD CONSISTENCY SPOKE WITH PATRICIA IN ADM. SHE WILL MAKE SURE FACILITY IS AWARE OF DIET RECOMMENDATION. ALSO NOTIFIED HER THAT PT. POSS DC FRI/SAT. DCP TO FOLLOW.
--- NOTE | 2018-06-12 14:05 | NUR ---
DCP FAXED SPEECH THERAPY NOTES REGARDING FOOD CONSISTENCY SPOKE WITH PATRICIA SHE RECEIVED INFO. ALSO NOTIFIED HER THAT PT. HAS MRSA IN THE NARES AND SHE WILL MAKE SURE PT. IS IN PVT RM. ANTICIPATE DC TUESDAY 06/13. DCP TO FOLLOW.
[2018-06-12 21:08] VITALS: BP 136/52
--- NOTE | 2018-06-13 03:29 | NUR ---
ASSUME CARE 1900. PT/VITALS STABLE. NO PAIN NOTED. MODERATE TOLERANCE TO ACTIVITY. ADEQYATE REST THROUGH THE NIGHT. SR/SB ON MONITOR. ASSESSMENT CHARTED. PROGRESSING WITH POC. PLAN IS FOR CASE MANAGEMENT TO DISCUSS DISCHARGE TO HOSPICE. WILL CONTINUE TO MONITO Teofilo DALEY WITH POC
[2018-06-13 05:46] VITALS: BP 137/64
[2018-06-13 08:54] VITALS: BP 133/48
[2018-06-13] MEDS ORDERED: LEVAQUIN 500 M500 M2 PO (12:45)
--- NOTE | 2018-06-13 12:47 | NUR ---
JOHN hospice nurse here and brian completed. She also spoke with the pt's jorge alberto Samuel with telegraphic typewriter installer. They do not feel she is a candiate for the hospice house,but they can readmit her to services at the retirement later this afternoon. Lizzie is agreeable. Questions answered regarding her swallow/ST recommendations for mod diet and supervision with meals. DC conference planner to arrange kcfd for 1500 pickup and the hospice nurse will be out to the nh around 4pm. Lizzie agreeable. Care team and the attending updated. Dc conference planner to fax final orders to the snf and hospice. Nursing to call report. Chart copy in progress.
[2018-06-13 12:52] VITALS: BP 118/49
--- NOTE | 2018-06-13 13:21 | NUR ---
FAXED DC ORDERS/SUMMARY TO [facility] SPOKE WITH ADM. THEY RECEIVED ORDERS AND TRANSPORT VIA AMBULANCE ARRANGED FOR 1500 TODAY. FAXED DC ORDERS/SUMMARY TO HOSPICE AND NOTIFIED THEM OF 15OO TRANSPORT TO [facility].
--- NOTE | 2018-06-13 17:37 | NUR ---
ASSUMED CARE OF PT AT 0700. PT SLEEPING BUT AWAKENS TO NAME. ORIENTED TO NAME ONLY. PT IS TOTAL CARE AND NEEDS TO BE FED. SWALLOW PRECAUTIONS USED FOR SAFETY. PT CAN BE COMBATIVE WITH CARES BUT IS EASILY REDIRECTED, AND IS PLEASANT WHEN NOT BEING MOVED. PT VITALS WNL AND WAS SINUS RHYTYM ON TELEMETRY. PT TRANSFERRED BACK TO [facility] VIA AMBULANCE. REPORT ATTEMPTED AT 1600 AND 1635 WITH NO ANSWER. PHONE ANSWERED AT 1730 AND REPORT GIVEN TO OLLIE. SEE ALSO CASE MANAGEMENT NOTES.
== END 2018-06-13 16:35 | DRG 871 ==
LOC: ER 15:24 → EROBS 17:05 → 2N 17:05 → EROBS 17:18 → 2N 17:48
PROVIDERS: Emergency Medicine; Hospitalist; Internal Medicine; Nurse Practitioner Acute Care; ADMIT Internal Medicine
DX: A41.9 Sepsis, unspecified organism (principal); J18.9 Pneumonia, unspecified organism; J96.01 Acute respiratory failure with hypoxia; E87.0 Hyperosmolality and hypernatremia; N17.9 Acute kidney failure, unspecified; E87.3 Alkalosis; G93.40 Encephalopathy, unspecified; F03.91 Unspecified dementia, unspecified severity, with behavioral disturbance; E46 Unspecified protein-calorie malnutrition; N39.0 Urinary tract infection, site not specified; K21.9 Gastro-esophageal reflux disease without esophagitis; I10 Essential (primary) hypertension; F32.9 Major depressive disorder, single episode, unspecified; F41.9 Anxiety disorder, unspecified; E11.9 Type 2 diabetes mellitus without complications; G25.81 Restless legs syndrome; E86.0 Dehydration; Z66 Do not resuscitate; E87.6 Hypokalemia; R13.10 Dysphagia, unspecified; Z68.22 Body mass index [BMI] 22.0-22.9, adult; Z88.0 Allergy status to penicillin; Z28.9 Immunization not carried out for unspecified reason
CPT/HCPCS: 10081

== ENCOUNTER 2019-11-06 14:22 | Inpatient (IN) | payer OTHER ==
[~2019-11-06] VITALS: Ht 152.4 cm; Wt 55.8 kg
--- NOTE | ~2019-11-06 | EMS ---
[facility] [address] [place] [address] EMS Patient Care Report Name: NAT DE SANTIAGO Room #: [facility] Ra#: [id number] Admission: Attend Phys: Discharge: Date of : 38 Report #: [id number] THIS REPORT FOR: //name// Report Transmitted: 11/06/2019 14:35 EMS Care Summary [facility] MED-ACT Incident [id number] @ 11/06/2019 13:35 Incident Location [address] [place] [address] Patient NAT DE SANTIAGO Female, 79 Years 1940 Patient Address [address] [place] [address] Patient History Dementia,Depression,Anxiety, Patient Allergies No known allergies, Patient Medications Bisacodyl, Senna, Midodrine, Acetaminophen, Morphine, Divalproex Sodium, Seroquel, Chief Complaint Coffee ground emesis Disposition Transported No Lights/[place] Dispatch Reason Hemorrhage/Laceration Transported To [facility] Narrative C - GI bleed. [facility] [address] [place] [address] EMS Patient Care Report Name: NAT DE SANTIAGO [id number] Admission: Attend Phys: Discharge: Date of : 39 Report #: [id number] - [id number] was dispatched on a C2 hemorrhage/laceration to a group home facility. Kirti arrived on scene to find Ms. De Santiago an 79 y/o female found lying in her bed chewing on a towel. Located in the patient's room were two workers at the facility and they were able to provide the HPI for the patient. Ms. De Santiago was found alert but unable to communicate with our crew. The patient was able to mumble or growl at our crew, and she had full movement of her extremities but the patient was unable to interact or respond to our crew. Staff on scene reported that this is all baseline for the patient and they warned our crew that the patient would hit, scratch or try to bite our crew. The patient continually tried to bite at our crew and continued to chew on a towel. Staff on scene reported that they initiated 911 this afternoon after the patient had one episode of ''very large'' projectile coffee ground vomit. Staff estimated that the patient vomited enough to fill an entire convenience bag. Staff on scene denied any previous GI bleeds involving the patient. As our crew was loading the patient onto the stretcher another employee entered the room and reported that she thought the patient had another episode of vomiting this morning but she wasn't for sure. Ms. De Santiago was never able to report to our crew if she was in any discomfort during our interaction. Staff denied any other recent illness, injury, or medication change involving the patient. R - Initial assessment, physical examination, V/s, pt. moved to stretcher, continued reassessment. T - No change was noted in the patient's V/s, presentation, or mental status during transport. The patient continued to be agitated and try and bite at our crew when we tried to adjust the BP cuff or apply the SPO2 monitor. The patient was moved over into bed in ED room 12 via sheet drag without incident with report given to ED RN. Initial Vitals @13:53P: 90,R: 14,BP: 128/84,Pain: 0/10,GCS: 13,SpO2: 98,Revised Trauma: 12, @14:09P: 94,R: 14,BP: 123/69,GCS: 13,SpO2: 98,Revised Trauma: 12, Assessments @13:48MENTAL:Combative,Confused,SKIN:HEENT:Head/Face: No Abnormalities,Neck/Airway: No Abnormalities,LUNG SOUNDS:General: Vomiting,ABDOMEN:General: Vomiting,PELVIS//GI:EXTREMITIES:Left Arm: No Abnormalities,Right Arm: No Abnormalities,Left Leg: No Abnormalities,Right Leg: No Abnormalities,PULSE:NEURO: Impression Gastrointestinal hemorrhage [facility] [address] [place] [address] EMS Patient Care Report Name: JENNNAT Room #: [facility].#: [id number] Admission: Attend Phys: Discharge: Date of : 38 Report #: [id number] Timeline 13:33,Call Received 13:33,Psap Call 13:35,Dispatched 13:36,En Route 13:43,On Scene 13:47,At Patient 13:53,BP: 128/84 M,PULSE: 90,RR: 14 R,SPO2: 98 Ox,ETCO2: ,BG: ,PAIN: 0,GCS: 13, 14:02,Depart Scene 14:09,BP: 123/69 M,PULSE: 94,RR: 14 R,SPO2: 98 Ox,ETCO2: ,BG: ,PAIN: ,GCS: 13, 14:13,At Destination 14:32,Call Closed Disclaimer v1.1 Copyright 2020 [employer] This EMS Care Summary contains data elements from the applicable legal record (which may be displayed differently). It is designed to provide pertinent information for the following purposes: continuity of care, clinical quality, and state data reporting. The complete legal record is available to ED staff and administrators of the receiving hospital in [employer] Patient Tracker. All data is provided "as is."
[2019-11-06 14:22] VITALS: BP 155/56
[~2019-11-06 14:22] MED LIST changes: +ATIVAN1 MG PO; +B12INJ IM; +BISCOLAX10 MG RECTAL; +LEVAQUIN 500 M500 M2 PO; +MIRALAX17 GM PO; +OSELB75 PO; +SCOPOLAMINE1 EACH TRANSDERM
[2019-11-06 15:17] LABS: HEMATOCRIT 39.8 % (37.0-47.0); MCH 30.6 pg (26.0-34.0); MCHC 32.7 g/dL (28.0-37.0); MCV 93.7 fL (80.0-100.0); PLATELET COUNT 321 thou/uL (150-400); RBC 4.25 mil/uL (4.20-5.00); RDW 15.2 % (10.5-14.5); WBC 25.3 thou/uL (4.0-11.0)
[2019-11-06 15:40] LABS: ALBUMIN 3.7 g/dL (3.4-5.0); CALCIUM 9.4 mg/dL (8.5-10.1); CREATININE 1.6 mg/dL (0.6-1.0); POTASSIUM 5.1 mmol/L (3.5-5.1); TOTAL BILIRUBIN 0.6 mg/dL (0.2-1.0); TOTAL PROTEIN 7.8 g/dL (6.4-8.2)
[2019-11-06 16:04] LABS: ABSOLUTE NEUTROPHILS 22.8 thou/uL (1.4-8.2)
[2019-11-06 16:05] LABS: ANISOCYTOSIS 1+; OVALOCYTES FEW
[2019-11-06 16:15] LABS: URINE BLOOD NEGATIVE (Negative); URINE CLARITY CLOUDY; URINE GLUCOSE-RANDOM* NEGATIVE (Negative); URINE KETONES 1+ (Negative); URINE PROTEIN (DIPSTICK) 1+ (Negative); URINE SPECIFIC GRAVITY 1.025 (1.005-1.035)
[2019-11-06 16:16] LABS: URINE LEUKOCYTES-REFLEX 2+ (Negative); URINE NITRITE-REFLEX POSITIVE (Negative)
[2019-11-06 16:22] LABS: ICTOTEST (BILI CONFIRMATORY) Negative (Negative); URINE BILIRUBIN NEGATIVE (Negative)
[2019-11-06 16:23] LABS: URINE COLOR AMBER
[2019-11-06 17:54] LABS: CASTS None Seen /LPF (None Seen); CRYSTALS None Seen /LPF (None Seen); SQUAMOUS >10 Many /LPF (0-3); URINE RBC None Seen /HPF (0-2)
[2019-11-06 20:43] VITALS: BP 111/56
[2019-11-06 21:14] VITALS: BP 105/56
--- NOTE | 2019-11-06 21:15 | NUR ---
TALKED WITH WILL AND GAVE HER AN UPDATE AND ROOM NUMBER OF PATIENT PEDRO CONFIRMED THAT PT IS DNR.
[2019-11-06 22:01] VITALS: BP 121/64
--- NOTE | 2019-11-06 22:57 | NUR ---
PATIENT WAS A NEW ADMISSION TO THE UNIT THIS SHIFT. SHE ARRIVED VIA CART FROM THE ER AND WAS TRANSFERRED TO THE BED WITHOUT INCIDENT. PATIENT IS ALERT TO SELF AND COMBATIVE IN THE FORM OF BITING AT STAFF MEMBERS. BREATHING IS STABLE ON OXYGEN EVIDENCED BY PRELIMINARY ASSESSMENT AND VITALS. NURSE TO COMPLETE THE ADMISSION AND INITIATE PLAN OF CARE.
[2019-11-06] MEDS ORDERED: TYLENOL325 M1 PO (23:04)
[2019-11-06] MEDS ORDERED: MSL20MG/ML PO (23:12)
[2019-11-06] MEDS ORDERED: ONDANSETRON HCL8 MG PO (23:14)
[2019-11-07 02:58] LABS: HEMATOCRIT 31.5 % (37.0-47.0); MCH 30.9 pg (26.0-34.0); MCHC 32.6 g/dL (28.0-37.0); RBC 3.31 mil/uL (4.20-5.00); RDW 15.1 % (10.5-14.5)
[2019-11-07 03:00] LABS: HEMOGLOBIN 10.2 gm/dL (12.0-15.0)
[2019-11-07 03:11] LABS: CALCIUM 8.1 mg/dL (8.5-10.1); POTASSIUM 4.4 mmol/L (3.5-5.1)
[2019-11-07 04:00] VITALS: BP 108/49
[2019-11-07 07:35] VITALS: BP 103/45
[2019-11-07 08:00] VITALS: BP 108/49
[2019-11-07 12:00] VITALS: BP 108/49
[2019-11-07 16:45] VITALS: BP 112/56
[2019-11-07 19:30] VITALS: BP 111/56
[2019-11-08 04:00] VITALS: BP 110/59
--- NOTE | 2019-11-08 05:01 | NUR ---
PATIENT IS PROGRESSING SLOWLY IN HER CARE PLAN. NO COMPLAINTS OF PAIN OR NAUSEA. PATIENT IS STILL DISORIENTED AND UNABLE TO PARTICIPATE IN CARE. BREATHING STABLE ON LOW LEVEL OXYGEN EVIDENCED BY ASSESSMENT AND SPOT OXYGENATION CHECKS. FREQUENT TURNS WITH SKIN CARE. PATIENT HAD MULTIPLE BOWEL MOVEMENTS. ADEQUATE OUTPUT THROUGH CATHETER. CONTINUE PLAN OF CARE.
[2019-11-08 08:00] VITALS: BP 101/52
[2019-11-08 08:21] VITALS: BP 108/64
[2019-11-08 12:00] VITALS: BP 101/52
[2019-11-08 15:31] VITALS: BP 165/80
--- NOTE | 2019-11-08 17:21 | NUR ---
PT CARE ASSUMED AT 0700. ASSESSMENTS CHARTED. MEDICATION CHARTED. PT HAS CLAUDE. RAC D5 W 0.9 NS AT 125, WRAPPED. PT BIT NC IN HALF SPO2 92% ON ROOM AIR. PT TRANSFERRED TO [facility] AT 1500.
[2019-11-08 20:59] VITALS: BP 114/47
--- NOTE | 2019-11-08 23:51 | NUR ---
PT IS DISORIENTED X 4 SECONDARY TO DEMENTIA. SHE SEEMS TO BE IN NO PAIN, RESTING COMFORTABLY IN BED. Q2HRS TURNS PROVIDED WITH APPLICATION OF BARRIER CRM TO BOTTOM. PT IS AFEBRILE. WAS SATTING AT 91% ON ROOM AIR, PLACED ON 02/2L TO KEEP SATS >92%. IVF INFUSING. SHE HAD A LARGE AMT OF BOWEL MOVT-MOSTLY LIQUID. SCDS IN PLACE.ARCE TO D/D, ADEQUATE OUTPUT NOTED. WILL CONTINUE WITH POC TILL EOS.
[2019-11-09 04:53] LABS: HEMATOCRIT 23.3 % (37.0-47.0); HEMOGLOBIN 7.9 gm/dL (12.0-15.0); MCH 31.6 pg (26.0-34.0); MCHC 33.7 g/dL (28.0-37.0); MCV 93.7 fL (80.0-100.0); RBC 2.49 mil/uL (4.20-5.00); RDW 14.9 % (10.5-14.5); WBC 9.7 thou/uL (4.0-11.0)
[2019-11-09 05:09] LABS: ALBUMIN 2.3 g/dL (3.4-5.0); CALCIUM 7.9 mg/dL (8.5-10.1); CREATININE 0.7 mg/dL (0.6-1.0); TOTAL BILIRUBIN 0.3 mg/dL (0.2-1.0); TOTAL PROTEIN 5.2 g/dL (6.4-8.2)
--- NOTE | 2019-11-09 08:04 | EKG ---
[facility] [place] [address] ELECTROCARDIOGRAM REPORT Name: NAT BARAJAS Room #: 446-P ADM IN M.R.#: [id number] Admission: 11/06/19 Attend Phys: Saji Dalton Discharge: Date of : 38 Report #: [id number] THIS REPORT FOR: cc: Kaiser Calix MD, Shyam MD Lundgren, Craig H. MD [facility] ~ THIS REPORT FOR: //name// [facility] ED Test Date: 2019-11-06 Test Time: 15:44:17 Pat Name: NAT BARAJAS Department: Room: 446 Gender: F Spray Dyer[facility] 1940 Requested By: Allie Sellers Order Number: [id number] MD: Wale Dooley Measurements Intervals [place] Rate: 92 P: 55 DC: 123 QRS: -3 QRSD: 95 T: 74 QT: 341 QTc: 422 Interpretive Statements Sinus rhythm Low voltage, precordial leads Nonspecific repol abnormality, diffuse leads Compared to ECG 06/08/2018 15:35:25 Low QRS voltage now present Sinus tachycardia no longer present Electronically Signed On 11-09-2019 8:04:22 CDT by Wale Dooley [email or web address] <ELECTRONICALLY SIGNED> By: Wale Dooley MD, [facility] 11/09/19 0804 1544 1544 Wale Dooley MD, [facility] /EPI
--- NOTE | 2019-11-09 09:52 | NUR ---
ASSESSMENT: CM REVIEWED CHART AND SPOKE WITH ATTENDING. PT WAS ADMITTED FOR POSSIBLE SBO/COLITIS/UTI. PT CAME TO [facility] FROM [facility]. PT NORMALLY USES A WHEELCHAIR AT THE FACILITY. CM SPOKE WITH PATIENT MCKAY COPELAND/ELAINE WHO CONFIRMED INFORMATION. PT WAS AT LTC FACILITY AND HAD HOSPICE IN THE PAST WITH HOSPICE BUT WAS DISCHARGED FROM THEIR SERVICES 09/20/19. CM CONTACTED HOSPICE TO CONFIRM THIS AND DO NOT HAVE NOTES TO WHY SHE WAS DISCHARGED. CM SPOKE WITH ATTENDING WHO STATES PATIENT HAS PROGRESSED WELL AND IS STABLE TO DISCHARGE BACK TO FACILITY TODAY. CM LEFT VM WITH LUIS IN ADMISSIONS AND NOTIFIED MICHAEL GOMEZ AT [facility]. PT WILL NEED A NEGATIVE COVID TEST PRIOR TO GOING BACK TO FACILITY AND CM NOTIFIED ATTENDING TO ORDER TEST. ELAINE/DINORAH IS OK WITH PATIENT DISCHARGING BACK TODAY BUT WANTED TO TALK WITH THE PHYSICIAN IF HE FEELS SHE NEEDS HOSPICE. CM NOTIFIED ATTENDING AND REQUESTED HIM TO CONTACT HER. LIV THEN RECEIVED A CALL BACK FROM PATRICIA RODRIGUEZ AT [facility] WHO REPORTS THEY DO NOT NEED THE NEGATIVE COVID PRIOR TO DISCHARGE AND THAT SHE CAN BE TESTED AT THEIR FACILITY ONCE SHE RETURNS. CM NOTIFIED ATTENDING. PLANS FOR DISCHARGE TODAY.
[2019-11-09 10:33] VITALS: BP 122/76
[2019-11-09 12:13] VITALS: BP 122/76
[2019-11-09 18:24] VITALS: BP 96/40
--- NOTE | 2019-11-09 18:35 | NUR ---
PT DISORIENTX4, VSS, BEDREST, PT BITES ANYTHING THAT IS PUT IN HER HANDS. PT HAS A ARCE, DIET CHANGE FROM CLEAR TO REGULAR. PT IS Q2T, LEFT IV FOREARM. NO WOUNDS, NO EDEMA, AND NO N/V. FALL PRECAUTIONS IN PLACE, WILL CONTINUE TO MONITOR.
[2019-11-09 20:40] VITALS: BP 122/45
--- NOTE | 2019-11-10 02:47 | NUR ---
NAT REMAINS DISORIENTED. SHE CONTINUES TO BITE ON BEDDINGS AND WHATEVER COMES CLOSE TO MOUTH.ARCE TO D/D WITH DARK BROWN URINE OUTPUT. SHE HAS HAD ONE LOOSE STOOL. SKIN IS INTACT TO BUTTOCK AREA. Q2HR TURN. BARRIER CRM APPLIED AFTER EACH INCONTINENT EPISODE.AFEBRILE. CONTINUES ON IV FLUIDS WELL ANTIBIOTICS. SHE WAS FED SOME REGULAR FOOD AT ABOUT SHIFT CHANGE BY OUTGOING RN.I HAVE NOT NOTED ANY NAUSEA OR VOMITING SO FAR.FALL PREC IN PLACE. WILL NOT KEEP OXYGEN ON-BITES ON TUBING, BUT SO FAR SHE PPEARS COMFORTABLE AND SATTING ABOVE 92%. HOB ELEVATED FOR BREATHING COMFORT.WILL CONTINUE WITH POC TILL EOS.
--- NOTE | 2019-11-10 04:33 | NUR ---
CM CONTACTED PT'S NIECE ON 11/09/19 PER NOTES TO UPDATE ON PT'S STATUS.LIASON AT [facility] ALSO CONTACTED.
[2019-11-10 07:40] VITALS: BP 110/50
--- NOTE | 2019-11-10 11:33 | NUR ---
ON-GOING ASSESSMENT: CM REVIEWED CHART AND SPOKE WITH ATTENDING. HE STATES PATIENT IS MEDICALLY STABLE TO DISCHARGE TO FACILITY TODAY. HE SPOKE WITH BEDSIDE RN AND PT IS TOLERATING DIET AND ATTENDING STATING WE CAN PROCEED WITH DISCHARGE AND TRANSPORTATION. CM NOTIFIED MICHAEL GOMEZ AT [facility] AND ALSO FAXED DISCHARGE ORDERS TO THE FACILITY. CM AWAITING A TIME FOR TRANSPORTATION. CM NOTIFIED PATIENTS MCKAY COPELAND WHO IS AGREEABLE WITH PLANS. SHE STATES SHE DOES NOT NEED TO BE NOTIFIED OF DISCHARGE TIME. CHART COPY WAS PREVIOUSLY ORDERED AND CM NOTIFIED ASSISTANT PROFESSOR OF SURGERY. BEDSIDE RN WAS GIVEN THE NUMBER FOR REPORT [phone]. AWAITING TIME FOR TRANSPORTATION.
--- NOTE | 2019-11-10 14:27 | NUR ---
Assumed care of pt. at 0700. Pt. is Disorientedx4. Pt. is combatitive and restless when invasive care is attempted. Pt. refused lab draw. Pt. will be discharged to a skill facility at 3 today.
== END 2019-11-10 15:30 | DRG 871 ==
LOC: ER 14:22 → EROBS 19:36 → 4S 19:36 → 2N 21:21 → 4S 11-08 16:24
PROVIDERS: Nurse Practitioner Family; Physician Assistant; ADMIT Hospitalist; ATTEND Hospitalist
DX: A41.9 Sepsis, unspecified organism (principal); N17.0 Acute kidney failure with tubular necrosis; E43 Unspecified severe protein-calorie malnutrition; G92 Toxic encephalopathy; N17.9 Acute kidney failure, unspecified; K56.609 Unspecified intestinal obstruction, unspecified as to partial versus complete obstruction; K92.2 Gastrointestinal hemorrhage, unspecified; N39.0 Urinary tract infection, site not specified; K56.7 Ileus, unspecified; R65.20 Severe sepsis without septic shock; K21.9 Gastro-esophageal reflux disease without esophagitis; I10 Essential (primary) hypertension; F32.9 Major depressive disorder, single episode, unspecified; F03.90 Unspecified dementia, unspecified severity, without behavioral disturbance, psychotic disturbance, mood disturbance, and anxiety; F41.9 Anxiety disorder, unspecified; E11.9 Type 2 diabetes mellitus without complications; G25.81 Restless legs syndrome; M19.90 Unspecified osteoarthritis, unspecified site; R74.0 Nonspecific elevation of levels of transaminase and lactic acid dehydrogenase [LDH]; R47.02 Dysphasia; D64.9 Anemia, unspecified; R91.1 Solitary pulmonary nodule; I95.9 Hypotension, unspecified; G47.00 Insomnia, unspecified; K52.9 Noninfective gastroenteritis and colitis, unspecified; Z88.0 Allergy status to penicillin; Z79.899 Other long term (current) drug therapy; Z03.818 Encounter for observation for suspected exposure to other biological agents ruled out
CPT/HCPCS: 10081; 10100; 10195